=== PATIENT | female | born 1980 | race Caucasian/White ===

== ENCOUNTER 2016-11-05 09:27 | Emergency (ER) | payer MEDICAID ==
[~2016-11-05] VITALS: Ht 175.3 cm; Wt 83.5 kg
--- NOTE | 2016-11-05 11:19 | PD ---
HPI Travel History International Travel<30 Days: No Contact w/Intl Traveler<30Days: No Known Affected Area: No History of Present Illness HPI This patient is a 36-year-old 3 para 2001 EDC is March 04, 2017 presently at 23 weeks gestation with a dichorionic diamniotic twin gestation She presents with a chief complaint of vaginal spotting she states that she was out and about went to the restroom to urinate wiped and saw blood on the tissue. She did put a pad on and when she came in there was a brownish smear of blood on the pad no bright red vaginal bleeding and presently no bleeding Patient did have sexual intercourse within the past 24 hours She is not having any pain or cramping, no contractions she states that she has tightening of her abdomen during the entire duration of the No nausea no vomiting no fever no chills no weakness no dizziness drank orange juice this morning in both babies are active Denies any urinary tract symptoms no dysuria hesitancy frequency or dribbling care with Dr. Jacobsen course has been unremarkable they did opt out of the quad screen. Advanced maternal age Presently no bleeding History Past Medical History Narrative Medical No known drug allergies she has a history of asthma uses an inhaler presently no shortness of breath or problems with her asthma Obstetric History Obstetric History First baby born February 11, 2008 male infant weight 8 lbs. 11 oz. vaginal delivery Second baby born January 17[birth year] 2010 male infant weight 9 pounds even vaginal delivery uncomplicated Past Surgical History Surgical History: No Previous Surgery Family History Narrative Family History Both parents have hypertension Social History Alcohol Use: No Tobacco Use: No Substance Abuse: No Allergies-Medications (Allergen,Severity, Reaction): Coded Allergies: No Known Allergies (Unverified , 11/05/16) Review of Systems Genitourinary: Vaginal Bleeding (as per history of present illness) Physical Exam Narrative GENERAL: Well-nourished, well-developed patient. Alert oriented 3 and cooperative in no acute distress SKIN: Warm and dry. HEAD: Normocephalic and atraumatic. EYES: No scleral icterus. No injection or drainage. Conjunctiva are pink ENT: No nasal drainage noted. Mucous membranes pink. Airway patent. Mucous membranes are moist NECK: Supple, trachea midline. No JVD. No thyroid enlargement no adenopathy CARDIOVASCULAR: Regular rate and rhythm grade 2/6 systolic ejection murmur at the left lower sternal border gallops, or rubs. No tachycardia RESPIRATORY: Breath sounds equal bilaterally. No accessory muscle use. ABDOMEN/GI: Abdomen is gravid size greater than dates due to the twin gestation no epigastric or right upper quadrant tenderness the abdomen is soft no palpable contractions the uterus is soft nontender no tenderness in the suprapubic area no tenderness over the right and left round ligaments no rebound tenderness no organomegaly Gravid to [-] weeks size size greater than dates 23 weeks gestation Fundal Height: [-] GENITOURINARY: Bedside ultrasound is done prior to a speculum exam External Genitalia: Patient has labial varicosities along the left labia majora BUS glands: [-] Within normal limits Cervix: [-] Posterior firm Dilatation: [-] External os is fingertip Effacement: [-] 0 Station: [-] Ballotable Presentation: [-] Vertex Membranes: [intact Uterine Contractions: [-] Initially when patient was placed on the monitor there appeared to be 2 or 3 irregular contractions for which the patient did not feel presently no contractions no irritability FHT's: Category: [-] Baseline: [-] A1 Reactive: [-] Variability: [-] Decels: [-] 0 EXTREMITIES: No cyanosis or edema. 2+ reflexes BACK: Nontender without obvious deformity. No CVA tenderness. NEUROLOGICAL: Awake and alert. Motor and sensory grossly within normal limits. Five out of 5 muscle strength in all muscle groups. Normal speech. Data Data Vital Signs Reviewed: Yes (blood pressure 114/72 pulse is 87 she is afebrile) Labs Bedside ultrasound has been done: twin A is vertex The BPD is 6.06 equaling 24 weeks and 5 days heart rate of 154 Baby is active Placenta is anterior grade 1-2 Normal fluid Twin B Vertex BPD of 6.04 equaling 24 weeks and 5 days Baby is active heart rate of 142 Fluid is normal The internal os there is no funneling Cervical length measuring 3.74 MDM Medical Record Reviewed: No (no records available) Interpretation(s) 36-year-old at 23 weeks gestation Diamniotic dichorionic twin gestation Vaginal bleeding most likely secondary to sexual intercourse No clinical evidence of abruption or previa Advanced maternal age Size greater than dates due to twin gestation History of LGA babies Narrative Course / MDM Blood type is A+ Plan [place] monitoring By mouth fluid hydration Urinalysis Blood type Will discharge patient home Strict limited activity Pelvic rest Kick counts Patient follow-up with Dr. aJcobsen in the a.m. within the next 24 hours Physician Communication Spoke with Dr. Clifford who is on for Dr. Jacobsen today he agrees with evaluation and management Does not want to do anything further in terms of patient care other than to follow-up blood type Dr. Clifford present on labor and delivery has been in to see the patient as well Agrees with discharge Diagnosis Diagnosis: Primary Impression: 23 weeks gestation of Additional Impressions: Dichorionic diamniotic twin gestation Qualified Code: O30.042 - Dichorionic diamniotic twin in second trimester Vaginal spotting Advanced maternal age in multigravida Qualified Code: O09.522 - Advanced maternal age in multigravida, second trimester Disposition: 01 DISCHARGE HOME Condition: Stable Xiomara Shin MD Nov 05, 2016 11:19
[2016-11-05 11:52] LABS: BACTERIA, URINE FEW /hpf; BLOOD, URINE LARGE (NEG); COMMENT (UR) CULT NOT INDICATED; CULTURE IF INDICATED CULT NOT INDICATED; GLUCOSE,URINE NEG (NEG); KETONE, URINE NEG (NEG); NITRITE,URINE NEG (NEG); SQUAMOUS EPITHELIAL CELL URINE <1 /hpf (0-5); URINE COLOR YELLOW (YELLW/STRAW)
== END 2016-11-05 11:59 | disposition home or self-care (01) ==
LOC: HOBED 09:27
DX: O26.852 Spotting complicating pregnancy, second trimester (principal); O30.042 Twin pregnancy, dichorionic/diamniotic, second trimester; O09.522 Supervision of elderly multigravida, second trimester; Z3A.24 24 weeks gestation of pregnancy
CPT/HCPCS: 36415; 76815; 81001; 86850; 86900; 86901

== ENCOUNTER → 2016-12-05 | Outpatient (CLI) | payer MEDICAID | LOC: HPND 12:57 | PROVIDERS: ATTEND Obstetrics & Gynecology | DX: O09.522 Supervision of elderly multigravida, second trimester (principal); O30.042 Twin pregnancy, dichorionic/diamniotic, second trimester; O35.8XX2 Maternal care for other (suspected) fetal abnormality and damage, fetus 2 | CPT/HCPCS: 76811; 76812 ==

== ENCOUNTER 2017-02-12 06:05 | Inpatient (IN) | payer MEDICAID ==
[2017-02-12] VITALS (27 sets, daily range): BP systolic 100–162; BP diastolic 62–97; PULSE 52–177; RESP 18–20; TEMP 98.2–98.5
[~2017-02-12] VITALS: Ht 175.3 cm; Wt 93.0 kg
[2017-02-12] MEDS ORDERED: NS 500 ML BOLUS IV PRN (07:15)
[2017-02-12] MEDS ORDERED: NS 1000 ML IV PRN (07:15)
[2017-02-12] MEDS ORDERED: OXYTOCIN 30 UNITS 500ML PREMIX IV ONE (07:15)
[2017-02-12] MEDS ORDERED: CITRIC ACID-SODIUM CITRATE LIQ 30 ML UDC PO SCH (07:15)
[2017-02-12] MEDS ORDERED: ONDANSETRON HCL 4 MG/2 ML VIAL IV PUSH PRN (07:15)
[2017-02-12] MEDS ORDERED: LACTATED RINGER'S 1000 ML BOLUS IV PRN (07:15)
[2017-02-12] MEDS ORDERED: LIDOCAINE HCL 1% 50 ML VIAL I-DERMAL PRN (07:15)
[2017-02-12] MEDS ORDERED: OXYTOCIN 30 UNITS/NS 500ML PREMIX IV SCH (07:15)
[2017-02-12] MEDS ORDERED: MINERAL OIL 10 ML VIAL TOPICAL PRN (07:15)
[2017-02-12] MEDS ORDERED: LIDOCAINE HCL 1% 50 ML VIAL INFIL PRN (07:15)
[2017-02-12] MEDS ORDERED: LACTATED RINGER'S 1000 ML IV SCH (07:15)
[2017-02-12 07:17] LABS: AUTOMATED NEUTROPHIL # 6.1 TH/MM3 (1.8-7.7); BASOPHIL # 0.1 TH/MM3 (0-0.2); BASOPHIL % 0.6 % (0.0-2.0); EOSINOPHIL # 0.1 TH/MM3 (0-0.4); EOSINOPHIL % 0.9 % (0.0-4.0); HEMATOCRIT 34.5 % (35.0-46.0); LYMPH % 20.4 % (9.0-44.0); LYMPHOCYTE # 1.8 TH/MM3 (1.0-4.8); MEAN CELL VOLUME 83.3 FL (80.0-100.0); MEAN CORPUSCULAR HGB CONC 33.6 % (32.0-36.0); MONO % 8.1 % (0.0-8.0); PLATELET COUNT 94 TH/MM3 (150-450); RED BLOOD COUNT 4.15 MIL/MM3 (4.00-5.30); RED CELL DISTRIBUTION WIDTH 13.9 % (11.6-17.2); WHITE BLOOD COUNT 8.7 TH/MM3 (4.0-11.0)
[2017-02-12 07:30] LABS: HEMO FLAGS AUTO DIFF
[2017-02-12 07:33] LABS: BACTERIA, URINE FEW /hpf; BLOOD, URINE NEG (NEG); COMMENT (UR) CULTURE INDICATED; CULTURE IF INDICATED CULTURE INDICATED; GLUCOSE,URINE NEG (NEG); KETONE, URINE NEG (NEG); MUCUS URINE FEW /lpf (OCC); NITRITE,URINE NEG (NEG); PH, URINE 6.5 (5.0-8.5); SQUAMOUS EPITHELIAL CELL URINE 2 /hpf (0-5); URINE COLOR YELLOW (YELLW/STRAW)
[2017-02-12 07:48] LABS: PLATELET ESTIMATE SMEAR LOW (NORMAL); PLATELET MORPHOLOGY ENLARGED (NORMAL)
[2017-02-12 07:49] LABS: SCAN/DIFF AUTO DIFF CONFIRMED
--- NOTE | 2017-02-12 08:30 | MH ---
cc: JOHN VALENZUELA DATE OF ADMISSION 02/12/2017 HISTORY OF PRESENT ILLNESS She is 79-[id number]-wqi, 3, para 2, intrauterine at 37 weeks with dichorionic diamniotic twins, vertex, vertex, group B strep negative. care has been with [facility]. PAST OB HISTORY Significant for a vaginal delivery in 2007, 8 pounds, 12 ounces. Vaginal delivery in 2009 9 pounds. care has been uncomplicated. She had a GCT of 117. Group B strep was negative. She has had dichorionic diamniotic twins, concordant growth, unstable lie baby B and now both babies are vertex, vertex. PAST RIPRAP MAN HISTORY Unremarkable. She had a normal Pap smear in July of 2016. PAST MEDICAL HISTORY Significant for asthma, allergies and depression. PAST SURGICAL HISTORY Noncontributory. SOCIAL HISTORY She denies toxic habits. MEDICATIONS She takes: 1. Vitamins. 2. Albuterol inhaler. ALLERGIES She has no known drug allergies. PHYSICAL EXAMINATION VITAL SIGNS: On physical exam her vital signs are stable. She is afebrile. Blood pressure is 126/72. She is 206 pounds. HEAD/HEART/CHEST/LUNGS: Her head, heart, chest, lung exams are within normal limits. ABDOMEN: Abdomen is soft, nontender, gravid. PELVIC: Exam she is 2-3 cm 50% effaced, -1 station, vertex, vertex with twins. ASSESSMENT/PLAN She is a 36-year-old, 3, para 2, intrauterine at 37 weeks with dichorionic diamniotic twins, unstable lie, currently vertex, vertex. She is going to be admitted for Pitocin augmentation on 02/12/2017. MD UNIQUE Maher/LICHA /2:31 PM /8:27 AM [facility]
--- NOTE | 2017-02-12 08:33 | PD.LABORPN ---
Subjective Subjective pt comfortable Objective Vital Signs Vital Signs Date Time Temp Pulse Resp B/P (MAP) Pulse Ox O2 Delivery O2 Flow Rate FiO2 02/12/17 08:12 52 18 130/84 (99) Objective Pelvic Exam: Cervix: [-] Dilatation: [-] 4 Effacement: [-] 70 Station: [-] -1 Presentation: [-] vtx/vtx Membranes: [intact or ruptured] arom clear Uterine Contractions: [-] Q4-7min FHT's: Category: [-] 1 Baseline: [-] Reactive: [-] Rx2 Variability: [-] great Decels: [-] Weeks Gestation: 37 Gest Age Assessed Date: Feb 12, 2017 Gest Age Assessed Time: 08:31 Pt started active labor?: Yes Active labor start date: Feb 12, 2017 Active labor start time: 08:32 Medical induction of labor?: Yes Medical induction start date: Feb 12, 2017 Medical induction start time: 08:32 Artificial rupture of membrane: Yes Artificial ROM date: Feb 12, 2017 Artifical ROM time: 08:32 Assessment/Plan Problem List: (1) Dichorionic diamniotic twin gestation ICD Codes: O30.049 - Twin , dichorionic/diamniotic, unspecified trimester Status: Acute (2) Advanced maternal age in multigravida ICD Codes: O09.529 - Supervision of elderly multigravida, unspecified trimester Status: Acute Assessment and Plan 37 y/o P2 IUP at 37 1/7 wks, twins, di/di, vtx/vtx on pitocin, arom clear, GBS neg, f/u labor progress, analgesia prn anticipate Eileen Jacobsen MD Feb 12, 2017 08:33
[2017-02-12] MEDS ORDERED: fentaNYL 2MCG-BUPIV 0.125% INJ 100 ML ONE (10:58)
--- NOTE | 2017-02-12 12:22 | PD.OB.DELI ---
Weeks gestation: 37 Gest age assessed date: Feb 12, 2017 Gest age assessed time: 08:31 Pt started active labor?: Yes Active labor start date: Feb 12, 2017 Active labor start time: 08:32 Medical induction of labor?: Yes Medical induction start date: Feb 12, 2017 Medical induction start time: 08:32 Artificial rupture of membrane: Yes Artificial ROM date: Feb 12, 2017 Artifical ROM time: 08:32 Anesthesia: Epidural Episiotomy: None Vaginal Delivery: Normal Presentation: Vertex Nuchal Cord: None Delayed cord clamping (45 sec): No Infant: Male Delivery date: Feb 12, 2017 Delivery time: 11:58 One Minute : 8 Five Minute : 9 Weight: 5-14 Placenta: Spontaneous delivery Laceration: 2 deg Repair: Chromic interrupted Additional Information Baby B vertex delivered at 12:07, male, apgars 8/9, wt 6-14 Eileen Jacobsen MD Feb 12, 2017 12:21
[2017-02-12] MEDS ORDERED: ONDANSETRON ODT 4 MG TAB PO PRN (12:30)
[2017-02-12] MEDS ORDERED: SODIUM CHLORIDE 0.9% FLUSH 10 ML FLUSH IV FLUSH PRN (12:30)
[2017-02-12] MEDS ORDERED: ACETAMINOPHEN 325 MG TAB PO PRN (12:30)
[2017-02-12] MEDS ORDERED: BENZOCAINE 20% TOPICAL SPRAY 60 ML CAN TOPICAL PRN (12:30)
[2017-02-12] MEDS ORDERED: ZOLPIDEM TARTRATE 5 MG TAB PO PRN (12:30)
[2017-02-12] MEDS ORDERED: WITCH HAZEL 50%/GLYCERIN 12.5% 40 PAD JAR TOPICAL PRN (12:30)
[2017-02-12] MEDS ORDERED: DOCUSATE SODIUM 50 MG/SENNA 8.6 MG TAB PO PRN (12:30)
[2017-02-12] MEDS ORDERED: ALUMINUM/MAGNESIUM/SIMETH 30 ML CUP PO PRN (12:30)
[2017-02-12] MEDS ORDERED: OXYTOCIN 30 UNITS-500ML PREMIX 500 ML IV SCH (12:30)
[2017-02-12] MEDS ORDERED: ePHEDrine/NS 25 MG/5 ML SYR IV PUSH PRN (14:30)
[2017-02-12] MEDS ORDERED: NO SYSTEM NARCOTICS PRN (14:30)
[2017-02-12] MEDS ORDERED: fentaNYL 2MCG-BUPIV 0.125% 100 ML EPIDURAL SCH (14:30)
[2017-02-12] MEDS ORDERED: DO NOT ADMINISTER ANTICOAGULANTS PRN (14:30)
[2017-02-12] MEDS ORDERED: DIPHTH/TETANUS/ACEL PERTUSSIS (BOOSTER) 0.5 ML VIAL/PFS IM ONE (16:00)
[2017-02-12] MEDS ORDERED: MEASLES, MUMPS, RUBELLA VACCINE 0.5 ML VIAL SQ ONE (16:00)
[2017-02-12] MEDS ORDERED: SODIUM CHLORIDE 0.9% FLUSH 10 ML FLUSH IV FLUSH SCH (21:00)
[2017-02-12] MEDS: IBUPROFEN 600 MG TAB PO PRN (22:05)
--- NOTE | 2017-02-13 07:53 | HHI.OB ---
Subjective Post Day: 1 Remarks Doing well PPD 1 no complaints Objective Vitals/I&O Vital Signs Date Time Temp Pulse Resp B/P (MAP) Pulse Ox O2 Delivery O2 Flow Rate FiO2 02/12/17 19:50 98.5 20 02/12/17 19:50 65 142/73 (96) 02/12/17 14:45 98.5 60 18 152/75 (100) 02/12/17 13:27 18 02/12/17 13:15 113/97 (102) 02/12/17 13:15 18 02/12/17 13:13 70 100/62 (75) 02/12/17 12:55 18 02/12/17 12:35 18 02/12/17 12:34 177 131/79 (96) 02/12/17 11:36 62 141/93 (109) 02/12/17 11:30 60 02/12/17 11:29 61 157/72 (100) 02/12/17 11:26 57 162/81 (108) 02/12/17 11:25 66 02/12/17 11:21 59 155/81 (105) 02/12/17 11:20 59 02/12/17 11:16 68 148/82 (104) 02/12/17 11:15 55 02/12/17 11:10 160/76 (104) 02/12/17 11:10 57 02/12/17 11:06 62 129/89 (102) 02/12/17 11:05 76 02/12/17 10:41 54 132/80 (97) 02/12/17 10:40 18 02/12/17 09:30 18 02/12/17 09:16 55 138/83 (101) 02/12/17 09:16 98.2 02/12/17 08:50 18 02/12/17 08:47 55 139/82 (101) 02/12/17 08:12 52 18 130/84 (99) Objective Remarks GENERAL: Well-nourished, well-developed patient. CARDIOVASCULAR: Regular rate and rhythm without murmurs, gallops, or rubs. RESPIRATORY: Breath sounds equal bilaterally. No accessory muscle use. ABDOMEN/GI: Abdomen soft, non-tender. Fundus: Firm, non-tender at umbilicus. GENITOURINARY: Light to moderate bleeding. EXTREMITIES: No cyanosis or edema, non-tender, without signs of DVT. Medications and IVs Current Medications Medications (Trade) Dose Ordered Sig/Jose G Route Start Time Stop Time Status Last Admin (NS Flush) 2 ml BID IV FLUSH 02/12/17 21:00 (NS Flush) 2 ml UNSCH PRN IV FLUSH 02/12/17 12:30 (Tylenol) 650 mg Q4H PRN PO 02/12/17 12:30 (Motrin) 600 mg Q6H PRN PO 02/12/17 12:30 02/12/17 22:05 (Americaine 20% Top Spr) 1 spray Q4H PRN TOPICAL 02/12/17 12:30 02/12/17 15:17 (Tucks Pads) 1 applic QID PRN TOPICAL 02/12/17 12:30 02/12/17 15:17 (Maria R-Colace) 2 tab Q12H PRN PO 02/12/17 12:30 02/12/17 22:05 (Ambien) 5 mg HS PRN PO 02/12/17 12:30 (Mag-Al Plus Susp Liq) 15 ml Q8H PRN PO 02/12/17 12:30 (Zofran Odt) 4 mg Q6H PRN PO 02/12/17 12:30 Miscellaneous Information No systemic narcotics to be given except... UNSCH PRN .XX 02/12/17 14:30 02/13/17 14:29 Miscellaneous Information DO NOT ADMINISTER ANY ANTICOAGUL... UNSCH PRN .XX 02/12/17 14:30 02/13/17 14:29 Fentanyl/ Bupivacaine HCl 100 ml @ 0 mls/hr TITRATE EPIDURAL 02/12/17 14:30 (ePHEDrine/NS 25 MG/5 ML SYR) 10 mg UNSCH PRN IV PUSH 02/12/17 14:30 02/13/17 14:29 Assessment/Plan Problem List: (1) Dichorionic diamniotic twin gestation ICD Codes: O30.049 - Twin , dichorionic/diamniotic, unspecified trimester Status: Acute (2) Advanced maternal age in multigravida ICD Codes: O09.529 - Supervision of elderly multigravida, unspecified trimester Status: Acute Assessment and Plan routine advancement Home PPD 2 Carbiener,Indira Oralia MD Feb 13, 2017 07:53
[2017-02-13 08:00] VITALS: BP 136/85; PULSE 50; RESP 18; TEMP 97.8
[2017-02-13] MEDS: IBUPROFEN 600 MG TAB PO PRN ×2 (08:37→16:54)
== END 2017-02-13 19:45 | disposition home or self-care (01) | DRG 775 ==
LOC: H2EB 06:05 → H1EA 14:38
PROVIDERS: ADMIT Obstetrics & Gynecology; ATTEND Obstetrics & Gynecology
PROC: 10E0XZZ Delivery of Products of Conception, External Approach (ICD-10-PCS; principal; 2017-02-12)
PROC: 0KQM0ZZ Repair Perineum Muscle, Open Approach (ICD-10-PCS; 2017-02-12)
PROC: 3E0P3VZ Introduction of Hormone into Female Reproductive, Percutaneous Approach (ICD-10-PCS; 2017-02-12)
PROC: 10907ZC Drainage of Amniotic Fluid, Therapeutic from Products of Conception, Via Natural or Artificial Opening (ICD-10-PCS; 2017-02-12)
PROC: 00HU33Z Insertion of Infusion Device into Spinal Canal, Percutaneous Approach (ICD-10-PCS; 2017-02-12)
PROC: 3E0R3BZ Introduction of Anesthetic Agent into Spinal Canal, Percutaneous Approach (ICD-10-PCS; 2017-02-12)
DX: O30.043 Twin pregnancy, dichorionic/diamniotic, third trimester (principal); Z37.2 Twins, both liveborn; O99.52 Diseases of the respiratory system complicating childbirth; J45.909 Unspecified asthma, uncomplicated; O70.1 Second degree perineal laceration during delivery; Z3A.37 37 weeks gestation of pregnancy
CPT/HCPCS: 59025; 81001; 85025; 86900; 86901; 87086; 88307; J2590; J3010; J7120